=== PATIENT | female | born 1965 | race Caucasian/White ===

== ENCOUNTER 2018-11-13 08:16 | Outpatient (CLI) | payer MEDICAID ==
--- NOTE | 2018-11-13 10:51 | Mammography Report ---
Reason: SCREENING MAMMO Procedure Date: 11/13/2018 Accession Number: [id number] / [id number] Procedure: ALFONSO - Screening Mammo Dig Bilat CPT Code: FULL RESULT: EXAM: Screening Mammo Dig Bilat DATE: 11/13/2018 8:46 AM CLINICAL HISTORY: Screening TECHNIQUE: (B) - Bilateral CC and MLO views were obtained. COMPARISON: 04/08/2014 PARENCHYMAL PATTERN: (A) - The breasts demonstrate scattered fibroglandular densities bilaterally. FINDINGS: There is a postbiopsy marker clip medial hemisphere central left breast without associated abnormality. There are no suspicious masses, calcifications, or areas of distortion. IMPRESSION: Negative examination. BI-RADS category 1. RECOMMENDATION: (ANNUAL) - Recommend routine annual screening mammography. BI-RADS CATEGORY: (1) - Negative. STANDARD QUALIFYING STATEMENTS: 1. This examination was not reviewed with the aid of Computer-Aided Detection (CAD). 2. A negative or benign imaging report should not preclude biopsy if clinically suspicious findings are present. 3. Dense breasts may obscure an underlying neoplasm. 4. This examination was reviewed without the aid of 3D breast imaging (tomosynthesis).
== END 2018-11-13 08:17 | disposition home or self-care (01) ==
LOC: DI 08:16
PROVIDERS: ATTEND Physician Assistant Medical
DX: Z12.31 Encounter for screening mammogram for malignant neoplasm of breast (principal)
CPT/HCPCS: 77067

== ENCOUNTER 2018-11-16 08:00 | Outpatient (CLI) | payer MEDICAID ==
[2018-11-16 14:07] LABS: BASOPHILS # (AUTO) 0.1 10^3/uL (0.0-0.1); BASOPHILS % (AUTO) 1.8 %; EOSINOPHILS # (AUTO) 0.1 10^3/uL (0.0-0.7); EOSINOPHILS % (AUTO) 1.4 %; HGB - HEMOGLOBIN 12.8 g/dL (12.0-16.0); LYMPHOCYTES # (AUTO) 2.1 10^3/uL (1.5-3.5); LYMPHOCYTES % (AUTO) 37.1 %; MEAN CORPUSCULAR HEMOGLOBIN 30.1 pg (27.0-31.0); MEAN CORPUSCULAR HGB CONC 33.6 g/dL (32.0-36.0); MEAN CORPUSCULAR VOLUME 89.4 fL (81.0-99.0); MONOCYTES # (AUTO) 0.4 10^3/uL (0.0-1.0); MONOCYTES % (AUTO) 6.6 %; NEUTROPHILS % (AUTO) 53.1 %; PLT - PLATELET COUNT 240 10^3/uL (130-450); RED BLOOD COUNT 4.27 10^6/uL (4.20-5.40); RED CELL DISTRIBUTION WIDTH 14.1 % (12.0-15.0); WHITE BLOOD COUNT 5.6 x10^3/uL (4.8-10.8)
[2018-11-16 14:36] LABS: ALBUMIN 4.3 g/dL (3.2-5.5); ALBUMIN/GLOBULIN RATIO 1.3 (1.0-2.2); ALKALINE PHOSPHATASE 79 IU/L (42-121); ALT ALANINE AMINOTRANSFERASE 25 IU/L (10-60); AST ASPARTATE AMINOTRANSFERASE 21 IU/L (10-42); BILIRUBIN,TOTAL 1.4 mg/dL (0.2-1.0); BUN - BLOOD UREA NITROGEN 17 mg/dL (6-20); CALCIUM 8.9 mg/dL (8.5-10.3); CARBON DIOXIDE - CO2 22 mmol/L (21-32); CHLORIDE 109 mmol/L (101-111); CHOL/HDL RATIO 3.8 (<4.4); CHOLESTEROL 160 mg/dL; CREATININE 0.6 mg/dL (0.4-1.0); GFR - MDRD 104 (>89); GLUCOSE 93 mg/dL (70-100); HDL CHOLESTEROL 42 mg/dL; LDL CHOLESTEROL,CALCULATED 104 mg/dL; LDL/HDL RATIO 2.5 (<4.4); SODIUM 138 mmol/L (135-145); TOTAL PROTEIN 7.6 g/dL (6.7-8.2); VLDL CHOLESTEROL 14 mg/dL
== END 2018-11-16 23:59 | disposition home or self-care (01) ==
LOC: LAB.N 08:00
PROVIDERS: ATTEND Nurse Practitioner Gerontology
DX: Z13.9 Encounter for screening, unspecified (principal)
CPT/HCPCS: 36415; 80053; 80061; 83721; 84443; 85025

== ENCOUNTER 2019-03-11 17:50 | Outpatient (CLI) | payer MEDICAID ==
--- NOTE | 2019-03-12 15:29 | XRAY Report ---
Reason: KNEE PAIN,RIGHT ACUTE Procedure Date: 03/11/2019 Accession Number: [id number] / [id number] Procedure: XR - Knee 3 View RT CPT Code: FULL RESULT: EXAM: RIGHT KNEE RADIOGRAPHY EXAM DATE: 03/11/2019 05:59 PM. CLINICAL HISTORY: KNEE PAIN, RIGHT ACUTE. COMPARISON: None. TECHNIQUE: 3 views. FINDINGS: Bones: Normal. No fractures or bone lesions. Joints: Mild spurring of tibial spines and intercondylar notch. No effusion. No subluxations. Patellofemoral joint space narrowing. Mild suprapatellar spurring. Medial compartment is likely mildly narrowed. Soft Tissues: Normal. No soft tissue swelling. IMPRESSION: 1. Mild to moderate degenerative changes. 2. No joint effusion or fracture. RADIA
== END 2019-03-11 17:51 | disposition home or self-care (01) ==
LOC: DI 17:50
PROVIDERS: ATTEND Nurse Practitioner Gerontology
DX: M17.11 Unilateral primary osteoarthritis, right knee (principal)

== ENCOUNTER 2019-06-29 07:17 | Outpatient (CLI) | payer MEDICAID ==
--- NOTE | 2019-07-01 07:10 | MRI Report ---
Reason: RT KNEE JOINT PAIN Procedure Date: 06/29/2019 Accession Number: [id number] / [id number] Procedure: MRI - Knee RT W/O CPT Code: Final Report FULL RESULT: EXAM: RIGHT KNEE MRI WITHOUT CONTRAST EXAM DATE: 06/29/2019 08:11 AM. CLINICAL HISTORY: Posterior knee pain for the past 4 months after twisting it while running from a dog. COMPARISON: None. TECHNIQUE: Multiplanar, multisequence T1-weighted and fluid-sensitive sequences of the knee without contrast. Other: None. FINDINGS: Bones: There is mild edema in the intercondylar spine of the tibia. Articular Cartilage: There is mild erosion of the articular cartilage mainly affecting the medial compartment and medial patellar facet. Medial Meniscus: There is mild extrusion of the medial meniscus. The free margin of the posterior horn is truncated. There appears to be an incomplete radial tear of the posterior root attachment on image 17 of series 801 and image 17 of series 401. Lateral Meniscus: There is increased T2 signal adjacent to the posterior root attachment of the lateral meniscus without a discernible tear. Cruciate Ligaments: The anterior and posterior cruciate ligaments are intact. Collateral Ligaments: The medial collateral and lateral collateral ligamentous structures are intact. Tendons: The patella and quadriceps tendons are intact. There is a longitudinal split of the popliteus tendon at its distal attachment. Musculature: No edema or fatty atrophy. Other: There is a small joint effusion. No popliteal cyst. No loose bodies. The medial and lateral retinacula are intact. The subcutaneous tissues and fat pads are unremarkable. IMPRESSION: 1. Possible incomplete radial tear of the posterior root attachment of the medial meniscus with extrusion of the body. 2. Small joint effusion. 3. Edema of the intercondylar spine of the tibia suggestive of a contusion. 4. Longitudinal split of the distal attachment of the popliteus tendon. RADIA
== END 2019-06-29 07:18 | disposition home or self-care (01) ==
LOC: DI 07:17
PROVIDERS: ATTEND Orthopaedic Surgery Sports Medicine
DX: M25.561 Pain in right knee (principal); M25.461 Effusion, right knee

== ENCOUNTER 2020-01-25 18:12 | Emergency (ER) | payer MEDICAID ==
[2020-01-25 18:22] VITALS: BP 109/75
[2020-01-25] MEDS ORDERED: SULFAMETH/TRIMETH DS 800/160 MG TABLET PO STA (18:30)
[2020-01-25] MEDS ORDERED: BUFFERED LIDOCAINE 10 ML SYRINGE SUBQ STA (18:30)
--- NOTE | 2020-01-25 18:33 | ED Physician Documentation ---
PD HPI WOUND RECHECK - Stated complaint Stated Complaint: RT ARM LUMP - Chief complaint Chief Complaint: Wound - Histroy obtained from History obtained from: Patient - Additional information Additional information: 2-day history of abscess in the right axilla without fevers. No history of prior. Review of Systems Constitutional: denies: Fever, Chills Throat: reports: Reviewed and negative Cardiac: reports: Reviewed and negative PD PAST MEDICAL HISTORY - Past Medical History Cardiovascular: None Respiratory: None Endocrine/Autoimmune: None Psych: None Musculoskeletal: None - Present Medications Home Medications: Ambulatory Orders Medication Instructions Recorded Confirmed Sulfamethoxazole/Trimethoprim 1 each PO BID 7 Days #14 tablet 01/25/20 [Sulfamethoxazole-Tmp Ds Tablet] - Allergies Allergies/Adverse Reactions: Allergies Allergy/AdvReac Type Severity Reaction Status Date / Time No Known Drug Allergies Allergy Verified 01/25/20 18:36 PD ED PE NORMAL - Vitals Vital signs reviewed: Yes - General General: Alert and oriented X 3, No acute distress - Extremities Extremities: Other (2cm pointed abscess below the right axilla, minimal cellulitis) Results - Vitals Vitals: Vital Signs - 24 hr 01/25/20 18:21 Temperature 36.3 C L Heart Rate 64 Respiratory 18 Rate Blood Pressure 109/75 O2 Saturation 100 Oxygen O2 Source Room air Procedures - Abscess I&D (location) R axilla Preparation: Alcohol, Lidocaine 1% Incision: Incised with scalpel, Purulent drainage (and some sebum), Loculations broken, Culture obtained Other: Pt tolerated well Departure - Departure Disposition: 01 Home, Self Care Clinical Impression: Abscess Condition: Good Record reviewed to determine appropriate education?: Yes Instructions: ED Abscess IandD Prescriptions: Sulfamethoxazole/Trimethoprim [Sulfamethoxazole-Tmp Ds Tablet] 1 each PO BID 7 Days #14 tablet Comments: We are performing a wound culture, the results should be done in 48-72 hours. If antibiotic change is necessary we will call you. Return if worse in the meantime, especially if you develop increased pain, fevers, cannot keep down the medication. Otherwise follow-up with your physician in approximately 2-3 days.
== END 2020-01-25 18:55 | disposition home or self-care (01) ==
LOC: ED 18:12
DX: L02.411 Cutaneous abscess of right axilla (principal)
CPT/HCPCS: 10060; 87070; 87205; 99283; A9270

== ENCOUNTER 2020-02-05 08:00 | Outpatient (CLI) | payer MEDICAID ==
[2020-02-05 18:23] LABS: BASOPHILS # (AUTO) 0.1 10^3/uL (0.0-0.1); BASOPHILS % (AUTO) 1.3 %; EOSINOPHILS # (AUTO) 0.1 10^3/uL (0.0-0.7); EOSINOPHILS % (AUTO) 0.8 %; HGB - HEMOGLOBIN 12.4 g/dL (12.0-16.0); LYMPHOCYTES # (AUTO) 2.8 10^3/uL (1.5-3.5); LYMPHOCYTES % (AUTO) 36.8 %; MEAN CORPUSCULAR HEMOGLOBIN 30.2 pg (27.0-31.0); MEAN CORPUSCULAR HGB CONC 33.7 g/dL (32.0-36.0); MEAN CORPUSCULAR VOLUME 89.8 fL (81.0-99.0); MONOCYTES # (AUTO) 0.4 10^3/uL (0.0-1.0); MONOCYTES % (AUTO) 5.2 %; NEUTROPHILS # (AUTO) 4.3 10^3/uL (1.5-6.6); NEUTROPHILS % (AUTO) 55.6 %; PLT - PLATELET COUNT 224 10^3/uL (130-450); RED CELL DISTRIBUTION WIDTH 12.8 % (12.0-15.0); WHITE BLOOD COUNT 7.7 x10^3/uL (4.8-10.8)
[2020-02-05 18:50] LABS: ALBUMIN 4.4 g/dL (3.2-5.5); ALBUMIN/GLOBULIN RATIO 1.4 (1.0-2.2); ALKALINE PHOSPHATASE 76 IU/L (42-121); ALT ALANINE AMINOTRANSFERASE 21 IU/L (10-60); AST ASPARTATE AMINOTRANSFERASE 19 IU/L (10-42); BILIRUBIN,TOTAL 1.2 mg/dL (0.2-1.0); BUN - BLOOD UREA NITROGEN 17 mg/dL (6-20); CALCIUM 9.6 mg/dL (8.5-10.3); CARBON DIOXIDE - CO2 25 mmol/L (21-32); CHLORIDE 104 mmol/L (101-111); CHOL/HDL RATIO 3.6 (<4.4); CHOLESTEROL 190 mg/dL; CREATININE 0.7 mg/dL (0.4-1.0); GLUCOSE 86 mg/dL (70-100); HDL CHOLESTEROL 53 mg/dL; LDL CHOLESTEROL,CALCULATED 124 mg/dL; LDL/HDL RATIO 2.3 (<4.4); SODIUM 138 mmol/L (135-145); TOTAL PROTEIN 7.6 g/dL (6.7-8.2); VLDL CHOLESTEROL 13 mg/dL
== END 2020-02-05 08:01 | disposition home or self-care (01) ==
LOC: LAB.WCP 08:00
PROVIDERS: ATTEND Nurse Practitioner Family
DX: Z00.00 Encounter for general adult medical examination without abnormal findings (principal)
CPT/HCPCS: 36415; 80053; 80061; 83721; 84443; 85025

== ENCOUNTER 2020-07-31 08:00 | Outpatient (CLI) | payer MEDICAID ==
[2020-07-31 22:56] LABS: BACTERIAL VAGINOSIS DNA POSITIVE (NEGATIVE); CANDIDA GLABRATA DNA NEGATIVE (NEGATIVE); CANDIDA GROUP DNA NEGATIVE (NEGATIVE); CANDIDA KRUSEI DNA NEGATIVE (NEGATIVE); TRICHOMONAS VAGINALIS DNA NEGATIVE (NEGATIVE)
== END 2020-07-31 23:59 | disposition home or self-care (01) ==
LOC: LAB.N 08:00
PROVIDERS: ATTEND Nurse Practitioner
DX: L29.8 Other pruritus (principal)
CPT/HCPCS: 87661; 87801

== ENCOUNTER 2020-08-26 07:00 | Outpatient (CLI) | payer MEDICAID ==
[2020-08-26 22:55] LABS: BACTERIAL VAGINOSIS DNA POSITIVE (NEGATIVE); CANDIDA GLABRATA DNA NEGATIVE (NEGATIVE); CANDIDA GROUP DNA NEGATIVE (NEGATIVE); CANDIDA KRUSEI DNA NEGATIVE (NEGATIVE); TRICHOMONAS VAGINALIS DNA NEGATIVE (NEGATIVE)
== END 2020-08-26 23:59 | disposition home or self-care (01) ==
LOC: LAB.R 07:00
PROVIDERS: ATTEND Physician Assistant Medical
DX: N76.0 Acute vaginitis (principal)
CPT/HCPCS: 87661; 87801

== ENCOUNTER 2020-10-08 16:05 | Outpatient (CLI) | payer MEDICAID ==
--- NOTE | 2020-10-08 18:58 | XRAY Report ---
PROCEDURE: Lumbar Spine 2 View INDICATIONS: LOW BACK PAIN TECHNIQUE: 2 views of the lumbar spine were acquired. COMPARISON: None. FINDINGS: Bones: 5 [id number]-oakblze vertebrae are present. There is normal bony alignment. No vertebral body compression fractures. No suspicious bony lesions. Soft tissues: Overlying bowel gas pattern is normal. No suspicious soft tissue calcifications. IMPRESSION: Unremarkable lumbar spine radiographs Reviewed by: Charles Roberts MD on 10/08/2020 5:57 PM [facility] Approved by: Charles Roberts MD on 10/08/2020 5:57 PM [facility] Station ID: [id number]
== END 2020-10-08 16:06 | disposition home or self-care (01) ==
LOC: DI.N 16:05
PROVIDERS: ATTEND Nurse Practitioner Family
DX: M54.5 Low back pain (principal)

== ENCOUNTER 2020-10-22 09:26 | Outpatient (CLI) | payer MEDICAID ==
--- NOTE | 2020-10-23 09:12 | Mammography Report ---
BILATERAL DIGITAL SCREENING MAMMOGRAM 3D/2D: 10/22/2020 CLINICAL: Routine screening. Comparison is made to exams dated: 11/13/2018 mammogram, 04/08/2014 mammogram, 04/29/2013 mammogram, 06/06/2011 mammogram, and 10/27/2010 mammogram - [facility]. The tissue of both breas ts is heterogeneously dense. This may lower the sensitivity of mammography. There is a biopsy clip in the left breast. No significant masses, calcifications, or other findings are seen in either breast. There has been no significant interval change. IMPRESSION: NEGATIVE There is no mammographic evidence of malignancy. A 1 year screening mammogram is recommended. This exam was interpreted at Station ID: [id number]. NOTE: For mammograms, a report in lay terms will be sent to the patient. Approximately 15% of breast malignancies will not be visualized mammographically. In the management of a palpable breast mass, a negative mammogram must not discourage biopsy of a clinically suspicious lesion. Electronically Signed By: Carter Machado M.D. muscogee/penrad:10/22/2020 12:17:06 ACR BI-RADS Category 1: Negative 3341F PARENCHYMAL PATTERN: (D) - The breast(s) demonstrate(s) heterogeneously dense fibroglandular chelsey clayton. BI-RADS CATEGORY: (1) - 1 RECOMMENDATION: (ANNUAL) - Recommend routine annual screening mammography. [id number] 1 year screening LATERALITY: (B)
== END 2020-10-22 09:27 | disposition home or self-care (01) ==
LOC: DI 09:26
DX: Z12.31 Encounter for screening mammogram for malignant neoplasm of breast (principal)

== ENCOUNTER 2021-05-17 09:14 | Outpatient (CLI) | payer MEDICAID ==
[2021-05-17 12:46] LABS: BASOPHILS # (AUTO) 0.1 10^3/uL (0.0-0.1); BASOPHILS % (AUTO) 1.8 %; EOSINOPHILS # (AUTO) 0.1 10^3/uL (0.0-0.7); EOSINOPHILS % (AUTO) 1.3 %; HCT - HEMATOCRIT 41.4 % (37.0-47.0); HGB - HEMOGLOBIN 13.5 g/dL (12.0-16.0); LYMPHOCYTES % (AUTO) 32.4 %; MEAN CORPUSCULAR HEMOGLOBIN 29.9 pg (27.0-31.0); MEAN CORPUSCULAR HGB CONC 32.6 g/dL (32.0-36.0); MEAN CORPUSCULAR VOLUME 91.8 fL (81.0-99.0); MEAN PLATELET VOLUME 10.2 fL (7.9-10.8); MONOCYTES # (AUTO) 0.4 10^3/uL (0.0-1.0); MONOCYTES % (AUTO) 5.6 %; NEUTROPHILS # (AUTO) 3.7 10^3/uL (1.5-6.6); NEUTROPHILS % (AUTO) 58.6 %; PLT - PLATELET COUNT 245 10^3/uL (130-450); RED BLOOD COUNT 4.51 10^6/uL (4.20-5.40); RED CELL DISTRIBUTION WIDTH 13.2 % (12.0-15.0); WHITE BLOOD COUNT 6.2 x10^3/uL (4.8-10.8)
[2021-05-17 13:05] LABS: % IRON SATURATION 22 % (20-50); ALBUMIN 4.5 g/dL (3.2-5.5); ALBUMIN/GLOBULIN RATIO 1.3 (1.0-2.2); ALKALINE PHOSPHATASE 82 IU/L (42-121); ALT ALANINE AMINOTRANSFERASE 18 IU/L (10-60); AST ASPARTATE AMINOTRANSFERASE 15 IU/L (10-42); BILIRUBIN,TOTAL 1.3 mg/dL (0.2-1.0); BUN - BLOOD UREA NITROGEN 20 mg/dL (6-20); CALCIUM 9.1 mg/dL (8.5-10.3); CARBON DIOXIDE - CO2 26 mmol/L (21-32); CHLORIDE 104 mmol/L (101-111); CHOL/HDL RATIO 3.4 (<4.4); CHOLESTEROL 190 mg/dL; CREATININE 0.7 mg/dL (0.4-1.0); GFR - MDRD 87 (>89); GLUCOSE 87 mg/dL (70-100); HDL CHOLESTEROL 56 mg/dL; IRON 84 ug/dL (28-170); LDL CHOLESTEROL,CALCULATED 122 mg/dL; LDL/HDL RATIO 2.2 (<4.4); POTASSIUM 4.3 mmol/L (3.5-5.0); SODIUM 138 mmol/L (135-145); TOTAL IRON BINDING CAPACITY 374 ug/dL (250-450); TOTAL PROTEIN 7.9 g/dL (6.7-8.2); TRANSFERRIN 267 mg/dL (192-382); TRIGLYCERIDES 58 mg/dL; VLDL CHOLESTEROL 12 mg/dL
[2021-05-17 13:10] LABS: THYROID STIMULATING HORMONE 1.17 uIU/mL (0.34-5.60)
[2021-05-17 13:16] LABS: FERRITIN 49.7 ng/mL (11.0-306.8)
[2021-05-17 13:38] LABS: FOLLICLE STIMULATING HORMONE 127.99 mIU/mL
[2021-05-17 13:39] LABS: LUTEINIZING HORMONE 62.41 mIU/mL
== END 2021-05-17 09:15 | disposition home or self-care (01) ==
LOC: LAB.N 09:14
PROVIDERS: ATTEND Internal Medicine
DX: N95.1 Menopausal and female climacteric states (principal); Z13.220 Encounter for screening for lipoid disorders; Z12.11 Encounter for screening for malignant neoplasm of colon; L65.9 Nonscarring hair loss, unspecified
CPT/HCPCS: 36415; 80053; 80061; 82728; 83001; 83002; 83540; 83721; 84443; 84466; 85025

== ENCOUNTER 2021-05-18 08:00 | Outpatient (CLI) | payer MEDICAID ==
[2021-05-18 15:46] LABS: FECAL OCCULT BLOOD (FIT) NEGATIVE (NEGATIVE)
== END 2021-05-18 23:59 | disposition home or self-care (01) ==
LOC: LAB.S 08:00
PROVIDERS: ATTEND Internal Medicine
DX: Z12.11 Encounter for screening for malignant neoplasm of colon (principal)
CPT/HCPCS: 82274

== ENCOUNTER 2021-06-22 10:56 | Outpatient (CLI) | payer MEDICAID ==
--- NOTE | 2021-06-22 18:53 | XRAY Report ---
PROCEDURE: Shoulder 3 View RT INDICATIONS: SHOULDER IMPINGEMENT SYNDROME TECHNIQUE: 3 views of the shoulder were acquired. COMPARISON: 08/13/2013. FINDINGS: Bones: No fractures or dislocations. No suspicious bony lesions. Visualized ribs appear intact. Soft tissues: No suspicious soft tissue calcifications. IMPRESSION: No osseous lesion. If there are persistent symptoms or continued clinical concern for pathology, then repeat plain film radiographs (7-10 days) or advanced imaging (CT, MR, bone scan) should be consider ed for further evaluation. Reviewed by: Daphney Valles MD, PhD on 06/22/2021 5:52 PM [facility] Approved by: Daphney Valles MD, PhD on 06/22/2021 5:52 PM [facility] Station ID: [id number]
== END 2021-06-22 10:57 | disposition home or self-care (01) ==
LOC: DI.N 10:56
PROVIDERS: ATTEND Internal Medicine
DX: M75.40 Impingement syndrome of unspecified shoulder (principal)

== ENCOUNTER 2021-12-11 20:03 | Emergency (ER) | payer MEDICAID ==
[2021-12-11] MEDS ORDERED: ALBUTEROL NEB 2.5 MG/3 ML INH STA (21:35)
[2021-12-11] MEDS ORDERED: CHERRY SYRUP 10 ML UDC PO ONE (21:38)
[2021-12-11] MEDS ORDERED: DEXAMETHASONE 10 MG/ML VIAL PO STA (21:38)
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
[2021-12-11 23:16] VITALS: BP 140/84
== END 2021-12-11 23:16 | disposition home or self-care (01) ==
LOC: ED 20:03
DX: T59.811A Toxic effect of smoke, accidental (unintentional), initial encounter (principal); J70.5 Respiratory conditions due to smoke inhalation; Y92.007 Garden or yard of unspecified non-institutional (private) residence as the place of occurrence of the external cause; Z87.891 Personal history of nicotine dependence
CPT/HCPCS: 71045; 99282; 99283; A9270

== ENCOUNTER 2022-02-09 08:16 | Outpatient (CLI) | payer MEDICAID ==
--- NOTE | 2022-02-10 12:06 | Mammography Report ---
BILATERAL DIGITAL SCREENING MAMMOGRAM 3D/2D: 02/09/2022 CLINICAL: Routine screening. Comparison is made to exams dated: 10/22/2020 mammogram, 11/13/2018 mammogram, 04/08/2014 mammogram, mammogram, 04/06/2012 mammogram, and 10/27/2010 mammogram - [facility]. Both breasts are heterogeneously dense, which may obscure small masses (category c / 51-75% glandula r tissue). There is a biopsy clip in the left breast. No significant masses, calcifications, or other findings are seen in either breast. There has been no significant interval change. IMPRESSION: NEGATIVE There is no mammographic evidence of malignancy. A 1 year screening mammogram is recommended. Based on the Tyrer Cuzick model (a risk assessment model) the patients lifetime risk is 10.0% and he r 10 year risk is 3.4%. According to the ACR, ACS, and NCCN guidelines, an annual breast MRI exam ander ng with mammogram is recommended if the patients lifetime risk is 20% or greater. This exam was interpreted at Station ID: [id number]. NOTE: For mammograms, a report in lay terms will be sent to the patient. Approximately 15% of breast malignancies will not be visualized mammographically. In the management of a palpable breast mass, a negative mammogram must not discourage biopsy of a clinically suspicious lesion. Electronically Signed By: Sagar Delgadillo M.D. atsorin/ramiro:02/09/2022 09:48:18 ACR BI-RADS Category 1: Negative 3341F PARENCHYMAL PATTERN: (D) - The breast(s) demonstrate(s) heterogeneously dense fibroglandular parfredyy ma. BI-RADS CATEGORY: (1) - 1 RECOMMENDATION: (ANNUAL) - Recommend routine annual screening mammography. [id number] 1 year screening LATERALITY: (B)
== END 2022-02-09 08:17 | disposition home or self-care (01) ==
LOC: DI.N 08:16
PROVIDERS: ATTEND Internal Medicine
DX: Z12.31 Encounter for screening mammogram for malignant neoplasm of breast (principal)

== ENCOUNTER 2022-03-24 09:43 | Outpatient (CLI) | payer MEDICAID ==
[2022-03-24 12:17] LABS: BASOPHILS # (AUTO) 0.1 10^3/uL (0.0-0.1); BASOPHILS % (AUTO) 1.1 %; BILIRUBIN,URINE NEGATIVE (NEGATIVE); EOSINOPHILS # (AUTO) 0.1 10^3/uL (0.0-0.7); EOSINOPHILS % (AUTO) 0.9 %; GLUCOSE, URINE (UA) NEGATIVE (NEGATIVE); HCT - HEMATOCRIT 40.6 % (37.0-47.0); HGB - HEMOGLOBIN 13.2 g/dL (12.0-16.0); KETONES,URINE (UA) NEGATIVE (NEGATIVE); LEUKOCYTE ESTERASE, URINE TRACE (NEGATIVE); LYMPHOCYTES # (AUTO) 2.1 10^3/uL (1.5-3.5); LYMPHOCYTES % (AUTO) 31.9 %; MEAN CORPUSCULAR HEMOGLOBIN 29.5 pg (27.0-31.0); MEAN CORPUSCULAR HGB CONC 32.5 g/dL (32.0-36.0); MEAN CORPUSCULAR VOLUME 90.6 fL (81.0-99.0); MEAN PLATELET VOLUME 10.1 fL (7.9-10.8); MONOCYTES # (AUTO) 0.4 10^3/uL (0.0-1.0); MONOCYTES % (AUTO) 5.8 %; NITRITE,URINE NEGATIVE (NEGATIVE); OCCULT BLOOD,URINE MODERATE (NEGATIVE); PLT - PLATELET COUNT 238 10^3/uL (130-450); PROTEIN,URINE NEGATIVE (NEGATIVE); RED BLOOD COUNT 4.48 10^6/uL (4.20-5.40); UROBILINOGEN,URINE 0.2 (NORMAL) E.U./dL (NORMAL); WHITE BLOOD COUNT 6.6 x10^3/uL (4.8-10.8)
[2022-03-24 12:23] LABS: CLARITY,URINE CLEAR (CLEAR)
[2022-03-24 12:37] LABS: BACTERIA,URINE None Seen /HPF (None Seen); RBC,URINE 0-5 /HPF (0-5); SQUAMOUS EPITHELIAL CELL,UR NONE SEEN (<= Few); WBC,URINE 0-3 /HPF (0-5)
[2022-03-24 13:07] LABS: ALBUMIN 4.5 g/dL (3.2-5.5); ALBUMIN/GLOBULIN RATIO 1.5 (1.0-2.2); BILIRUBIN,TOTAL 1.3 mg/dL (0.2-1.0); CALCIUM 9.6 mg/dL (8.5-10.3); CREATININE 0.7 mg/dL (0.4-1.0); POTASSIUM 4.2 mmol/L (3.5-5.0); TOTAL PROTEIN 7.5 g/dL (6.7-8.2)
== END 2022-03-24 09:44 | disposition home or self-care (01) ==
LOC: LAB.N 09:43
PROVIDERS: ATTEND Internal Medicine
DX: R10.13 Epigastric pain (principal)
CPT/HCPCS: 36415; 80053; 81001; 82150; 83690; 85025; 87086; 87181

== ENCOUNTER 2022-03-25 20:43 | Outpatient (CLI) | payer MEDICAID ==
--- NOTE | 2022-03-25 22:26 | Ultrasound Report ---
PROCEDURE: Pelvic w/Transvaginal INDICATIONS: ABD PAIN, PELVIC PAIN TECHNIQUE: Real-time scanning was performed of the pelvic organs, with image documentation. Additional endovagi nal scanning was necessary due to incomplete visualization of the adnexal and endometrial structures by transabdominal scanning. COMPARISON: None. FINDINGS: Uterus: Uterus is anteverted and normal in size at 6.2 x 3.1 x 4.3 cm. The myometrium is heterogene ous. 9 x 8 x 11 mm intramural fibroid in left anterior myometrium is seen. 1.3 x 1.1 x 1.1 cm subser osal/intramural fibroid in fundus of uterus is also noted. The endometrium measures 4.2 mm in combine d thickness. No gross endometrial mass or fluid. Ovaries: The right ovary measures 2.7 x 1.7 x 2.6 cm, with a calculated ovarian volume of 6.2 cc. T he left ovary measures 2.5 x 1.4 x 2.1 cm, with a calculated ovarian volume of 3.8 cc. The ovaries h ave a normal sonographic appearance. Dominant follicle in left ovary is seen measures less than 1 cm in size. No adnexal masses are seen. Other: No pathologic free abdominal or pelvic fluid. IMPRESSION: 1. 2 small uterine fibroids as above. No endometrial mass or fluid. 2. No gross abnormality is seen in bilateral ovaries. Reviewed by: Joe Moore MD on 03/25/2022 10:24 PM PDT Approved by: Joe Moore MD on 03/25/2022 10:24 PM PDT Station ID: [id number]
--- NOTE | 2022-03-25 22:28 | Ultrasound Report ---
PROCEDURE: Abdomen Complete INDICATIONS: ABD PAIN, PELVIC PAIN TECHNIQUE: Real-time scanning was performed of the abdominal and retroperitoneal organs, with image documentatio n. COMPARISON: None. FINDINGS: Liver: Liver is normal in size. Coarsely heterogeneous liver parenchymal echotexture is seen. 9 x 8 x 10 mm cyst is seen in left hepatic lobe. Subtle hypoechoic area is noted in right hepatic dome yazmin ures 1.3 x 0.9 cm in size. No internal vascularity is seen. Normal hepatopedal flow is seen in main p ortal vein. Gallbladder: There is no gallstone. No gallbladder wall thickening or pericholecystic fluid. No sonog raphic Savage's sign. Biliary ducts: Intrahepatic bile ducts are non-dilated. Extrahepatic bile duct caliber measures 3 m m. Normal is 6-7 mm or less in diameter, or 10 mm or less post-cholecystectomy. Pancreas: Pancreas is not well visualized due to overlying bowel gas. Spleen: Spleen is normal in size and homogeneous in echotexture. Kidneys: Kidneys are normal in size and echotexture. Right kidney measures 10.1 cm long; left kidne y measures 9.5 cm long. No hydronephrosis or nephrolithiasis. No solid masses. Simple cysts are se en in left kidney measures 1.4 x 1.4 cm and 2 x 1.5 cm in size. Aorta: Visualized aorta is normal in caliber at less than 3 cm. Iliacs: Proximal common iliac arteries are normal in caliber at less than 2.5 cm. IVC: Intrahepatic inferior vena cava is patent. Miscellaneous: No free abdominal fluid. IMPRESSION: 1. Slightly degraded study due to patient's body habitus and overlying bowel gas. 2. Suggestion of a left hepatic lobe cyst and a possible cyst versus hemangioma involving right hepat ic dome. Coarsely heterogeneous liver parenchymal echotexture suggestive of hepatic steatosis versus other type of metabolic liver disease. 3. Normal-appearing gallbladder. No biliary ductal dilatation. 4. Left renal cysts. No hydronephrosis or nephrolithiasis. Reviewed by: Joe Moore MD on 03/25/2022 10:27 PM PDT Approved by: Joe Moore MD on 03/25/2022 10:27 PM PDT Station ID: [id number]
== END 2022-03-25 20:44 | disposition home or self-care (01) ==
LOC: DI 20:43
PROVIDERS: ATTEND Nurse Practitioner
DX: D25.1 Intramural leiomyoma of uterus (principal); N28.1 Cyst of kidney, acquired

== ENCOUNTER 2023-05-16 08:00 | Outpatient (CLI) | payer MEDICAID ==
[2023-05-16 12:14] LABS: FECAL OCCULT BLOOD (FIT) NEGATIVE (NEGATIVE)
== END 2023-05-16 23:59 | disposition home or self-care (01) ==
LOC: LAB.N 08:00
PROVIDERS: ATTEND Internal Medicine
DX: Z12.11 Encounter for screening for malignant neoplasm of colon (principal)
CPT/HCPCS: 82274

== ENCOUNTER 2023-05-16 08:19 | Outpatient (CLI) | payer MEDICAID ==
--- NOTE | 2023-05-17 09:23 | Mammography Report ---
BILATERAL DIGITAL SCREENING MAMMOGRAM 3D/2D: 05/16/2023 CLINICAL: Routine screening. Comparison is made to exams dated: 02/09/2022 mammogram, 10/22/2020 mammogram, and 11/13/2018 mammogram - [facility]. Both breasts are heterogeneously dense, which may obscure small masses (category c / 51-75% glandular tissue). There is a biopsy clip in the left breast. No significant masses, calcifications, or other findings are seen in either breast. There has been no significant interval change. IMPRESSION: NEGATIVE There is no mammographic evidence of malignancy. A 1 year screening mammogram is recommended. Based on the Tyrer Cuzick model (a risk assessment model) the patients lifetime risk is 9.8% and her 10 year risk is 3.6%. According to the ACR, ACS, and NCCN guidelines, an annual breast MRI exam linnette g with mammogram is recommended if the patients lifetime risk is 20% or greater. This exam was interpreted at Station ID: [id number]. NOTE: For mammograms, a report in lay terms will be sent to the patient. Approximately 15% of breast malignancies will not be visualized mammographically. In the management of a palpable breast mass, a negative mammogram must not discourage biopsy of a clinically suspicious lesion. Electronically Signed By: Rich meraz/ramiro:05/16/2023 12:37:24 letter sent: No_Letter ACR BI-RADS Category 1: Negative 3341F PARENCHYMAL PATTERN: (D) - The breast(s) demonstrate(s) heterogeneously dense fibroglandular chelsey clayton. BI-RADS CATEGORY: (1) - 1 Mammogram [id number] 1 year screening LATERALITY: (B)
== END 2023-05-16 08:20 | disposition home or self-care (01) ==
LOC: DI.N 08:19
PROVIDERS: ATTEND Internal Medicine
DX: Z12.31 Encounter for screening mammogram for malignant neoplasm of breast (principal); R92.323 Mammographic fibroglandular density, bilateral breasts; R92.333 Mammographic heterogeneous density, bilateral breasts

== ENCOUNTER 2023-09-21 15:55 | Outpatient (CLI) | payer MEDICAID ==
[2023-09-21 17:42] LABS: BASOPHILS # (AUTO) 0.1 10^3/uL (0.0-0.1); BASOPHILS % (AUTO) 1.2 %; EOSINOPHILS % (AUTO) 0.4 %; HCT - HEMATOCRIT 39.1 % (37.0-47.0); HGB - HEMOGLOBIN 12.8 g/dL (12.0-16.0); LYMPHOCYTES # (AUTO) 2.3 10^3/uL (1.5-3.5); LYMPHOCYTES % (AUTO) 28.1 %; MEAN CORPUSCULAR HEMOGLOBIN 29.2 pg (27.0-31.0); MEAN CORPUSCULAR HGB CONC 32.7 g/dL (32.0-36.0); MEAN CORPUSCULAR VOLUME 89.1 fL (81.0-99.0); MEAN PLATELET VOLUME 9.9 fL (7.9-10.8); MONOCYTES # (AUTO) 0.4 10^3/uL (0.0-1.0); MONOCYTES % (AUTO) 4.6 %; NEUTROPHILS # (AUTO) 5.4 10^3/uL (1.5-6.6); NEUTROPHILS % (AUTO) 65.5 %; PLT - PLATELET COUNT 227 10^3/uL (130-450); RED BLOOD COUNT 4.39 10^6/uL (4.20-5.40); RED CELL DISTRIBUTION WIDTH 13.2 % (12.0-15.0); WHITE BLOOD COUNT 8.2 x10^3/uL (4.8-10.8)
[2023-09-21 17:51] LABS: ALBUMIN 4.7 g/dL (3.2-5.5); ALBUMIN/GLOBULIN RATIO 1.6 (1.0-2.2); ALKALINE PHOSPHATASE 79 IU/L (42-121); ALT ALANINE AMINOTRANSFERASE 13 IU/L (10-60); AST ASPARTATE AMINOTRANSFERASE 14 IU/L (10-42); BILIRUBIN,TOTAL 0.9 mg/dL (0.2-1.0); BUN - BLOOD UREA NITROGEN 18 mg/dL (6-20); CALCIUM 9.7 mg/dL (8.5-10.3); CARBON DIOXIDE - CO2 27 mmol/L (21-32); CHLORIDE 107 mmol/L (101-111); CREATININE 0.7 mg/dL (0.6-1.3); CRP - C-REACTIVE PROTEIN < 0.5 mg/dL (<0.5); GFR - MDRD 86 (>89); GLUCOSE 83 mg/dL (74-104); POTASSIUM 3.9 mmol/L (3.5-4.5); SODIUM 139 mmol/L (135-145); TOTAL PROTEIN 7.6 g/dL (6.4-8.9)
== END 2023-09-21 15:56 | disposition home or self-care (01) ==
LOC: LAB.N 15:55
PROVIDERS: ATTEND Nurse Practitioner
DX: M35.3 Polymyalgia rheumatica (principal); R53.83 Other fatigue
CPT/HCPCS: 36415; 80053; 84443; 85025; 85651; 86140

== ENCOUNTER 2023-10-03 17:52 | Outpatient (CLI) | payer MEDICAID ==
--- NOTE | 2023-10-04 13:43 | Ultrasound Report ---
PROCEDURE: Renal (Retroperitoneal) INDICATIONS: BILATERAL FLANK PAIN TECHNIQUE: Real-time scanning was performed of the retroperitoneal organs, with image documentation. COMPARISON: None. FINDINGS: Technically challenging exam secondary to patient's body habitus and increased bowel gas. Kidneys: Kidneys are normal in size. Right kidney measures 10.2 cm long; left kidney measures 10.3 cm long. Right renal cortical thickness is 1.3 cm; left renal cortical thickness is 1.1 cm. No bj d masses, hydronephrosis, or nephrolithiasis. Mild right renal pelvic prominence. Upper pole cysts b ilaterally measuring 1.2 cm on the right and 1.8 cm on the left. Bladder: Pre-void bladder volume is 738 mL. Post-void residual is 83 mL. Pre-void images demonstra te no intraluminal masses or stones. On pre-void images, bilateral ureteral jets are noted with colo r Doppler interrogation. (Of note, ureteral jets may not be detectable in up to 25% of cases due to insufficient differences in specific gravity between ureteral and bladder urine). Miscellaneous: No free abdominal fluid. IMPRESSION: Technically suboptimal exam due to patient body habitus. Moderate-sized postvoid residual in the urinary bladder. Mild right pelvic prominence without nya hydronephrosis. No evidence of significant calcification in either kidney. Reviewed by: Kendal Olmedo MD on 10/04/2023 1:42 PM PDT Approved by: Kendal Olmedo MD on 10/04/2023 1:42 PM PDT Station ID: [id number]
== END 2023-10-03 17:53 | disposition home or self-care (01) ==
LOC: DI 17:52
PROVIDERS: ATTEND Nurse Practitioner
DX: R10.9 Unspecified abdominal pain (principal)

== ENCOUNTER 2023-12-26 07:55 | Outpatient (CLI) | payer MEDICAID ==
--- NOTE | 2023-12-26 21:40 | MRI Report ---
Knee RT WO CLINICAL INFORMATION: 58 years of age, Female, R KNEE INSTABILITY. COMPARISON: 06/29/2019 Technique: Multisequence, multiplanar MRI of the right knee was performed without intravenous contras t. FINDINGS: Menisci: In the medial meniscus, the posterior root is extremely diminutive, likely secondary to a co mplex, incomplete tear. There is additional complex tear involving the posterior horn, with a predomi nantly longitudinal oblique component. There is oblique tear of the medial meniscus body. Moderate e xtrusion of the medial meniscus body, progressed from prior exam. There are multiple parameniscal cys ts about the posterior root and the posterior horn, with the largest measuring 2.0 cm about the poste rior root, new from prior exam. The lateral meniscus is unremarkable. Cruciate ligaments: The anterior and posterior cruciate ligaments are intact. MCL/LCL: The MCL is unremarkable. The biceps femoris tendon is unremarkable. The fibular collateral ligament is unremarkable. The iliotibial band is intact. The popliteus muscle and tendon also appear intact. Extensor mechanism: The quadricep tendon is unremarkable. The patella tendon is unremarkable. Patellofemoral joint: Alignment within the patellofemoral joint is normal. The patellofemoral ligame nts are intact. Multifocal high-grade chondral irregularity in the patella. Mild chondromalacia in th e lateral patellar facet. Punctate subchondral marrow edema in the medial patellar facet. Cartilage o f the trochlea is well maintained. Cartilage and bone: In the medial compartment, there is large area of full-thickness chondral denudat ion in the weightbearing portion of the femoral condyle. Additional mild chondral irregularity of the nonweightbearing portion of the femoral condyle. In the lateral compartment, the cartilage is grossl y well maintained. No acute fracture. Miscellaneous: No significant joint effusion. No popliteal cyst. No intra-articular bodies are ident ified. Normal muscle signal intensity and morphology. No vascular anomaly. IMPRESSION: 1.Extensive tear of the medial meniscus, progressed from prior exam. Interval development of multiple parameniscal cysts about the posterior root and posterior horn of the medial meniscus. 2.Moderate, medial compartment predominant chondrosis, grossly unchanged. Reviewed by: Esther Plunkett MD on 12/26/2023 9:39 PM PDT Approved by: Esther Plunkett MD on 12/26/2023 9:39 PM PDT Station ID: [id number]
== END 2023-12-26 07:56 | disposition home or self-care (01) ==
LOC: DI 07:55
PROVIDERS: ATTEND Internal Medicine
DX: S83.231A Complex tear of medial meniscus, current injury, right knee, initial encounter (principal); M22.41 Chondromalacia patellae, right knee; M23.021 Cystic meniscus, posterior horn of medial meniscus, right knee